=== PATIENT | male | born 1995 | race Caucasian/White ===

== ENCOUNTER 2024-12-15 08:56 | Emergency (ER) | payer MEDICAID, SELFPAY ==
[2024-12-15 09:20] VITALS: BP 165/85; PULSE 75; RESP 18; TEMP 37.2; O2SAT 98; BMI 29.7
--- NOTE | 2024-12-15 09:26 | PD.EDRME ---
Rapid Medical Screening Exam RME Arrival date/time: 12/15/24 08:56 This is a 29-year-old male that comes in with complaints of bloody stools. Patient states this has been going on for over a month. Patient states that he did not want to seek medical attention for this. Patient denies constipation. Patient reports a history of hep C and was undergoing treatment but stopped. I have greeted and performed a focused initial assessment of this patient. Initial appropriate labs ordered at this time. A comprehensive ED assessment and evaluation of the patient and analysis of all test and completion of medical decision making process will be conducted by additional ED provider. Chief Complaint: GI Bleed Time Seen by Provider: 12/15/24 09:06 Vital signs: Vital Signs Temperature 98.9 F 12/15/24 09:20 Pulse Rate 75 12/15/24 09:20 Respiratory Rate 18 12/15/24 09:20 Blood Pressure 165/85 H 12/15/24 09:20 Pulse Oximetry (%) 98 12/15/24 09:20 Oxygen Delivery Method Room Air 12/15/24 09:20
[2024-12-15 09:43] LABS: Basophils % (Auto) 0 % (0-2.5); Eosinophils # (Auto) 0.1 Thou/mm3 (0.0-0.5); Eosinophils % (Auto) 1 % (0-10); Hematocrit 44.3 % (41.0-53.0); Immature Granulocytes % (Auto) 1 % (0-0); Immature Granulocytes Auto 0.07 Thou/mm3 (0.00-0.00); Lymphocytes # (Auto) 3.9 Thou/mm3 (1.0-4.8); Lymphocytes % (Auto) 27 % (10-50); Mean Corpuscular HGB Conc 36.1 g/dl (31.0-37.0); Mean Corpuscular Hemoglobin 30.9 pg (25.0-35.0); Mean Corpuscular Volume 86 fL (80-100); Monocytes # (Auto) 0.6 Thou/mm3 (0.0-0.8); Monocytes % (Auto) 4 % (0-12); Neutrophils # (Auto) 9.9 Thou/mm3 (1.8-7.7); Neutrophils % (Auto) 68 % (37-80); Nucleated Red Blood Cell % 0 /100 WBC (0); Platelet Count 256 Thou/mm3 (140-440); RDW Standard Deviation 41.8 fL (35.1-43.9); Red Blood Count 5.18 Miln/mm3 (4.50-5.90); White Blood Count 14.7 Thou/mm3 (3.8-10.6)
[2024-12-15 09:58] LABS: Prothrombin Time 10.7 Seconds (9.0-12.2)
[2024-12-15 10:04] LABS: Alanine Aminotransferase 12 U/L (10-49); Albumin, Serum 4.8 gm/dL (3.5-5.0); Albumin/Globulin Ratio 1.9 (1.2-2.2); Alkaline Phosphatase 82 U/L (46-116); Anion Gap 9 (7-16); Aspartate Amino Transferase 15 U/L (0-34); BUN/Creatinine Ratio 7 Ratio (12-20); Bilirubin,Total 0.5 mg/dL (0.3-1.2); Blood Urea Nitrogen 6 mg/dL (9-23); Carbon Dioxide 26.9 mMol/L (20.0-31.0); Chloride 104 mMol/L (98-107); Creatinine (Component) 0.9 mg/dL (0.6-1.3); Estimated Creatinine Clearance 128.6 mL/min (>60); Globulin 2.5 gm/dL (2.3-3.5); Glucose 100 mg/dL (74-106); Lipase 46 U/L (12-53); Osmolality,Calculated 277 (275-295); Potassium 3.6 mMol/L (3.4-5.1); Sodium 140 mMol/L (136-145); Total Protein 7.3 gm/dL (5.7-8.2); eGFR > 60 See Note
--- NOTE | 2024-12-15 12:39 | EDNOTE_ITS ---
<Statement entered by Carina Bloom MD - 12/16/24 09:01> As co-signing physician, I was present and available for consult prn. I concur with the plan and care as documented by the midlevel provider. ED General RME/HPI General Chief complaint: GI Bleed Stated complaint: BLOOD IN STOOL X 2 WKS Time Seen by Provider: 12/15/24 09:06 Arrival date/time: 12/15/24 08:56 CC: Rectal bleeding HPI ongoing intermittent for the past 2 weeks. Patient states last 24 hours he has had it on his stool, is bright red, and a couple drops between stools. Patient denies fever chills chest pain shortness of breath difficulty breathing diarrhea abdominal pain or low back pain. No other complaints at this time. Review of the vital signs show that they are stable. RME / HPI RME / HPI narrative: 12/15/24 08:56 This is a 29-year-old male that comes in with complaints of bloody stools. Patient states this has been going on for over a month. Patient states that he did not want to seek medical attention for this. Patient denies constipation. Patient reports a history of hep C and was undergoing treatment but stopped. I have greeted and performed a focused initial assessment of this patient. Initial appropriate labs ordered at this time. A comprehensive ED assessment and evaluation of the patient and analysis of all test and completion of medical decision making process will be conducted by additional ED provider. Related Data Allergies Allergy/AdvReac Type Severity Reaction Status Date / Time No Known Allergies Allergy Verified 12/15/24 08:59 Review of Systems Review of Systems Narrative Review of Systems: GEN: No fever, no chills, no weight loss EYES: No discharge, no visual changes, no pain HEENT: No ear pain, no congestion, no sore throat PULM: No shortness of breath, no cough, no congestion CV: No chest pain, no dyspnea on exertion, no palpitations GI: No nausea, no vomiting, no diarrhea, no pain, no constipation : No frequency, no urgency, no dysuria MUSC/SKEL: No joint pain, no back pain SKIN: No rash PSYCH: No hallucinations, no depression HEME/LYMPH: No easy bleeding or bruising tendencies NEURO: No weakness, no headache Past Medical History Social History SMOKING STATUS: Light (< 1 pack/day) ED Exam Narrative Physical exam: [General: Not in any acute distress Head normocephalic HEENT: Within acceptable limits Neck is supple nontender Chest equal chest rise nontender to palpation Respiratory: Clear to auscultation no wheezes crackles or rubs CV: Rate rhythm is regular no murmurs rubs or clicks Abdomen is soft nontender no masses positive bowel sounds all 4 quadrants GI: Rectum: Good rectal tone, no fissures or hemorrhoids no active bleeding. Back: No CVA tenderness no spinous process tenderness from cervical spine thoracic and lumbar spine Skin: Intact no petechiae rash induration ulceration or crepitus Extremities: Moving all extremity against resistance cap refill less than 2 seconds neurosensory intact Neuro: Awake alert oriented x3 Glascow coma 15 no focal deficits] Course Course Course Narrative: Patient has no active bleeding at this time patient will referral to outpatient. Quality Measures none Orders Category Date Time Status CBC Stat Lab 12/15/24 09:32 Completed Comprehensive Metabolic Panel Stat Lab 12/15/24 09:32 Completed Lipase Stat Lab 12/15/24 09:32 Completed PT [Prothrombin Time with INR] Stat Lab 12/15/24 09:32 Completed Type and Screen Stat Lab 12/15/24 09:32 Completed Vital Signs Vital signs: Vital Signs Temperature 98.9 F 12/15/24 09:20 Pulse Rate 75 12/15/24 09:20 Respiratory Rate 18 12/15/24 09:20 Blood Pressure 165/85 H 12/15/24 09:20 Pulse Oximetry (%) 98 12/15/24 09:20 Oxygen Delivery Method Room Air 12/15/24 09:20 Discharge Plan Plan Patient Disposition: HOME (Self Care) Patient condition on transfer: Stable Prescriptions/Referrals Referrals: Yeison Stephen MD [Physician] - In 1 week Axel Crawford MD [Physician] - In 1 week No Primary/Family,Physician [Primary Care Provider] - In 1 week Problem List Clinical Impression: Rectal bleeding Patient/Caregiver Discharge Instructions Education Materials: ED Lower GI Bleeding (Stable) Additional Instructions: Follow-up with the physicians listed above if there is a worsening of the bleeding return to the emergency room medially for further evaluation. Print Language: [place] Stand Alone Forms: Neena Award Info., Work/School Release, Patient Portal Info Letter PA/HEAT TREATER APPRENTICE Supervising Physician PA/HEAT TREATER APPRENTICE Supervising Physician: Shaun Flowers Enp MDM Clinical Information Provided by: patient Medical Records reviewed [facility] Chronic Illness/Social Conditions which may negatively complicate care or outcome(s)-explain: None or not applicable EKG EKG not done Labs Labs: Interpreted by me Lab(s) Interpretation(s): CBC shows a mild leukocytosis of 14.7 no anemia thrombocytopenia Coags within acceptable limits CMP shows no significant electrolyte imbalances renal impairment transaminitis or T. bili elevation
== END 2024-12-15 12:53 | disposition home or self-care (01) ==
PROVIDERS: Nurse Practitioner Family; Emergency Provider Emergency Medicine
DX: K62.5 Hemorrhage of anus and rectum (principal)
CPT/HCPCS: 36415; 80053; 83690; 85025; 85610; 86850; 86900; 86901; 99283